=== PATIENT | female | born 1975 | race Hispanic/Latino ===

== ENCOUNTER → 2018-03-01 | Day surgery (SDC) | payer BC ==
--- NOTE | 2018-02-26 11:11 | Diagnostic Imaging Report ---
PROCEDURE: X-RAY CHEST, TWO VIEWS COMPARISON: None. INDICATIONS: PRE-OPERATIVE CHEST X-RAY FOR RIGHT FOOT SURGERY FINDINGS: LUNGS: No consolidations or edema. PLEURA: No effusions or pneumothorax. HEART \T\ MEDIASTINUM: The heart is within normal size-limits. BONES \T\ SOFT TISSUES: No acute findings. CONCLUSION: No acute thoracic abnormality. Dictated by: Prmiitivo Mike M.D. on 02/26/2018 at 11:15 Electronically approved by: Primitivo Mike M.D. on 02/26/2018 at 11:15
[~2018-03-01] MED LIST: BUPIVACAINE HCL 0.5% INJ 30 ML VIAL INJ ONE; CEFAZOLIN SOD 1 GM VIAL ONE; DEXAMETHASONE SOD PHOS INJ 4 MG/ML VIAL ONE; FENTANYL CITRATE/PF 100MCG/2 ML INJ ONE; KETOROLAC TROMETHAMINE 30 MG/ML VIAL ONE; LIDOCAINE HCL 2% LOCAL INJ 5 ML SDV VIAL INJ ONE; MIDAZOLAM HCL 2 MG/2 ML VIAL ONE; ONDANSETRON HCL INJ 2 MG/ML VIAL ONE; PROPOFOL IV EMULSION 10 MG/ML 20 ML VIAL ONE; SEVOFLURANE INHAL SOLN 250 ML PEN BTL ONE
--- NOTE | 2018-03-01 07:51 | Operative Report ---
DATE OF PROCEDURE: March 01, 2018 PREOPERATIVE DIAGNOSIS: Right hallux valgus. POSTOPERATIVE DIAGNOSIS: Right hallux valgus. PLANNED PROCEDURE: Right Felix bunionectomy with 1st metatarsal osteotomy and internal fixation, right foot. ANESTHESIA: General with a postoperative block consisting of 15 mL of 0.5% Marcaine plain mixed with 1 mL of dexamethasone phosphate. HEMOSTASIS: Pneumatic thigh tourniquet set at 350 mmHg for a total time of approximately 25 minutes. MATERIALS: Two 2 mm x 14 mm cortical bone screws, 2-0 Vicryl, 3-0 Vicryl, 4-0 Monocryl. ESTIMATED BLOOD LOSS: Less than 10 mL. PATHOLOGY: None. DETAILS OF PROCEDURE: Patient was seen in the preoperative waiting room where the correct procedure and site was identified. The patient was brought to the operating room and placed on the operating table in the supine position. General anesthesia was initiated at this time. A well-padded pneumatic tourniquet was placed about the patient's right thigh. The right foot, ankle and leg was then scrubbed, prepped and draped in the usual aseptic manner. The right foot, ankle and leg was then exsanguinated with an Esmarch bandage and pneumatic thigh tourniquet was inflated to 350 mmHg for a total time of approximately 30 minutes. Attention was directed to the dorsomedial aspect of the patient's right foot where a 5 cm curvilinear incision was made directly over the 1st metatarsophalangeal joint. The incision was carried through the subcutaneous tissues them from deeper underlying structures. All vital neurovascular structures were identified and retracted medially and laterally, and all bleeders were cauterized or ligated as deemed necessary. At this time through the same incision, a full lateral release was performed consisting of the deep transverse metatarsal ligament, lateral collateral ligament, as well as the fibular sesamoid ligament. The hallux was then put through a range of motion and found to be functioning in a more proper anatomic alignment. Next, attention was directed back to 1st metatarsophalangeal joint where a inverted-L capsulotomy was performed to allow for good visualization of 1st metatarsal head. Utilizing a sagittal saw, the medial eminence was resected and passed off to the back table. Next, utilizing a sagittal saw, a medial to lateral Chevron osteotomy was performed at the dorsal wing longer to allow for proper fixation. The capital fragment was transposed laterally, approximately 2-3 mm and impacted onto the shaft of the 1st metatarsal. The osteotomy was then temporarily fixated with a K-wire. Using techniques of AO fixation, two 2 mm x 14 mm cortical bone screws were placed. Fixation site is stable. The wound was then flushed with copious amounts of sterile saline. Capsular and deep tissue were reapproximated with 2-0 Vicryl, subcutaneous tissue with 3-0 Vicryl and skin was closed using a running subcuticular stitch with 4-0 Monocryl. The incision site was then dressed with Mastisol, Steri-Strips, Adaptic, 4 x 4s, Kerlix, Keyur wrap, and a postop shoe. Patient tolerated the procedure and anesthesia well. She was transferred to the postoperative recovery unit with vital signs stable and vascular status intact. The patient was monitored there for a short period of time before being sent home with follow written and oral instructions: 1. Keep the dressing clean, dry and intact. 2. The patient is to remain partial weightbearing in a postop shoe and crutches, but to avoid excessive ambulation until being seen in the office. 3. Patient was given the office number and instructed to contact us if any problems should arise. Job#: [id number]
== END | disposition home or self-care (01) ==
LOC: OR 05:08
PROVIDERS: ATTEND Podiatrist Foot & Ankle Surgery
DX: M20.11 Hallux valgus (acquired), right foot (principal); Z01.810 Encounter for preprocedural cardiovascular examination; Z01.811 Encounter for preprocedural respiratory examination
CPT/HCPCS: 28296; 71046; 93005; J0690; J1100; J1885; J2001; J2250; J2405

== ENCOUNTER → 2018-05-03 | Day surgery (SDC) | payer BC ==
[2018-05-01 12:15] LABS: BASOPHILS # (AUTO) 0.1 (0.0-0.1); BASOPHILS % 0.9 % (0.0-1.0); EOSINOPHILS # (AUTO) 0.2 (0.0-0.4); EOSINOPHILS % 2.2 % (0.0-6.0); HEMATOCRIT 38.9 % (34.2-44.1); HEMOGLOBIN 13.4 g/dL (12.0-16.0); LYMPHOCYTES # (AUTO) 1.7 (1.0-3.2); LYMPHOCYTES % 24.7 % (18.0-39.1); MEAN CORPUSCULAR HEMOGLOBIN 28.6 pg (28-32); MEAN CORPUSCULAR HGB CONC 34.4 g/dL (31-35); MEAN CORPUSCULAR VOLUME 83.1 fL (81-99); MONOCYTES # (AUTO) 0.5 (0.2-0.8); MONOCYTES % 7.7 % (4.4-11.3); NEUTROPHILS # (AUTO) 4.4 (2.1-6.9); NEUTROPHILS % 64.1 % (38.7-80.0); PLATELET COUNT 230 x10e3/uL (140-360); RED BLOOD COUNT 4.68 x10e6/uL (3.6-5.1)
[~2018-05-03] MED LIST changes: +DESFLURANE 240 ML BTL INH ONE; -KETOROLAC TROMETHAMINE 30 MG/ML VIAL ONE; -SEVOFLURANE INHAL SOLN 250 ML PEN BTL ONE
--- NOTE | 2018-05-03 07:56 | Operative Report ---
DATE OF PROCEDURE: May 03, 2018 PREOPERATIVE DIAGNOSIS: Left bunion hallux valgus. POSTOPERATIVE DIAGNOSIS: Left bunion hallux valgus. PLANNED PROCEDURE: Left Felix bunionectomy with 1st metatarsal osteotomy and internal fixation, left foot. 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 ANESTHESIA: General with a postoperative block consisting of 10 mL of 0.5% Marcaine plain mixed with 1 mL of dexamethasone phosphate. HEMOSTASIS: Pneumatic thigh tourniquet set at 350 mmHg for a total time approximately 30 minutes. MATERIALS: Two 2 mm x 12 mm cortical bone screws, 2-0 Vicryl, 3-0 Vicryl, 4-0 Monocryl. ESTIMATED BLOOD LOSS: Less than 10 mL. PATHOLOGY: None. PROCEDURE NOTE: Patient was seen in the preoperative waiting where the correct procedure and site was identified. The patient was brought to the operating room and placed on the operating table in the supine position. General anesthesia was initiated at this time. The left foot, ankle and leg was then scrubbed, prepped and draped in the usual aseptic manner. The left foot, ankle and leg were exsanguinated with an Esmarch bandage, and the pneumatic thigh tourniquet was inflated to 350 mmHg for a total time approximately 30 minutes. Attention was directed to the dorsomedial aspect of the patient's left 1st metatarsophalangeal joint where a large bony prominence is noted. A 5 cm curvilinear incision was made directly over the 1st metatarsophalangeal joint medial to the extensor hallucis longus tendon. The incision was carried through the subcutaneous tissues them from deeper underlying structures. All vital neurovascular structures were identified and retracted medial and laterally, and all bleeders were cauterized or ligated as deemed necessary. At this time, a full lateral release was performed through the same incision by transecting the deep transverse intermetatarsal ligament, as well as the fibular sesamoid ligament. The hallux was then put through a range motion and found to be functioning in more proper anatomic alignment. Next, an inverted-L capsulotomy was performed at the level of 1st metatarsophalangeal joint, and the medial aspect of the head of the 1st metatarsal was freed of all capsular ligamentous attachments. At this point, utilizing a McGlamry elevator, the plantar aspect was freed as well. Next, utilizing a sagittal saw the medial eminence was resected and passed off to the back table. At this time, a medial to lateral Chevron osteotomy was performed with the dorsal wing longer to allow for proper fixation. The capital fragment was transposed laterally approximately 2-3 mm and impacted onto the shaft of the 1st metatarsal. This was temporarily fixated with a K-wire. At this time, using techniques of AO fixation, two 2 mm x 12 mm cortical bone screws were placed. Fixation site is stable. The wound was then flushed with copious amounts of sterile saline. Capsule and deep tissue were reapproximated with 2-0 Vicryl, subcutaneous tissue with 3-0 Vicryl and the skin was closed using a running subcuticular suture with 4-0 Monocryl. The incision site was then dressed with Mastisol, Steri-Strips, Adaptic, 4 x 4s, Kerlix, Keyur wrap, and a postop shoe. The patient tolerated the procedure and anesthesia well. Patient was transferred to the postoperative recovery unit with vital signs stable and vascular status intact. The patient was monitored there for a short period of time before being sent home with the following written and oral instructions: 1. Keep the dressing clean, dry and intact. 2. The patient is to remain partial weightbearing in a postop shoe with crutches to the left lower extremity and to avoid excessive ambulation until being seen in the office. 3. The patient was given the office number and instructed to contact us if any problems should arise. Job#: [id number]
[2018-05-03 08:40] VITALS: BP 117/67
== END | disposition home or self-care (01) ==
LOC: OR 05:07
PROVIDERS: ATTEND Podiatrist Foot & Ankle Surgery
DX: M20.12 Hallux valgus (acquired), left foot (principal); Z01.812 Encounter for preprocedural laboratory examination
CPT/HCPCS: 28296; 36415; 85025; J0690; J1100; J2001; J2250; J2405